=== PATIENT | female | born 1955 | race Caucasian/White ===

== ENCOUNTER 2023-02-05 19:00 | Emergency (ER) | payer MEDICARE, MEDICAID ==
[~2023-02-05] VITALS: Ht 157.5 cm; Wt 82.0 kg
[2023-02-05 20:13] LABS: BASOPHILS % (AUTO) 0.3 % (0-1); EOSINOPHILS % (AUTO) 0 % (0-6); HEMATOCRIT 42.7 % (35.0-45.0); HEMOGLOBIN 14.7 g/dl (12.0-16.0); LYMPHOCYTES # (AUTO) 0.5 X10'3 (1.1-4.8); LYMPHOCYTES % (AUTO) 4.7 % (21-51); MEAN CORPUSCULAR HEMOGLOBIN 30.2 PG (27.0-31.0); MEAN CORPUSCULAR HGB CONC 34.3 g/dL (33.0-36.5); MEAN CORPUSCULAR VOLUME 88.1 FL (78-98); MEAN PLATELET VOLUME 10.3 FL (7.4-10.4); MONOCYTES # (AUTO) 0.8 X10'3 (0-0.9); MONOCYTES % (AUTO) 7.4 % (2-12); NEUTROPHILS # (AUTO) 10.1 X10'3 (1.8-7.7); NEUTROPHILS % (AUTO) 87.6 % (42-75); PLATELET COUNT 179 X10'3 (140-440); RED BLOOD COUNT 4.85 X10'6 (4.20-5.60); RED CELL DISTRIBUTION WIDTH 13.5 % (11.5-14.5); WHITE BLOOD COUNT 11.5 X10'3 (4.5-11.0)
[2023-02-05] MEDS ORDERED: ondansetron/PF 4mg/2ml inj IV ONE (20:30)
[2023-02-05] MEDS ORDERED: meclizine 12.5mg tablet PO ONE ×2 (20:30)
[2023-02-05] MEDS ORDERED: normal saline 1000ml 1,000 ML IV ONE (20:30)
[2023-02-05] MEDS ORDERED: famotidine/PF 10 mg/ml inj IV ONE (20:30)
[2023-02-05 20:34] LABS: ALANINE AMINOTRANSFERASE 23 U/L (12-78); ALBUMIN/GLOBULIN RATIO 0.9 (1.1-1.5); ALKALINE PHOSPHATASE 63 IU/L (46-116); ANION GAP 12 (8-16); ASPARTATE AMINO TRANSFERASE 26 U/L (10-37); BILIRUBIN,TOTAL 1.1 MG/DL (0.1-1.0); BLOOD UREA NITROGEN 13 MG/DL (7-18); BUN/CREATININE RATIO 11.1 (10.0-20.0); CALCIUM 9.5 MG/DL (8.5-10.1); CHLORIDE 98 MMOL/L (99-107); CREATININE 1.17 MG/DL (0.40-0.90); GLUCOSE 139 MG/DL (70-104); PRO BRAIN NATRIURETIC PEPTIDE 1288 PG/ML (0-125); SODIUM 137 MMOL/L (135-145); TOTAL CARBON DIOXIDE 26.6 MMOL/L (24-32); TOTAL PROTEIN 8.3 G/DL (6.4-8.2); eCRCL 37 ML/MIN; eGFR 46 ML/MIN
[2023-02-05] MEDS ORDERED: potassium CL 10mEq/100ml bag 100 ML IV SCH (20:45)
[2023-02-05 21:54] LABS: BILIRUBIN,URINE NEGATIVE (Neg); CLARITY,URINE SLIGHTLY CLOUDY (Clear); COLOR,URINE YELLOW (Yellow); GLUCOSE, URINE NEGATIVE (Neg); KETONES,URINE 40 mg/dl (Neg); LEUKOCYTE ESTERASE ,URINE NEGATIVE (Neg); NITRITES, URINE NEGATIVE (Neg); OCCULT BLOOD,URINE SMALL (Neg); PH,URINE 5.5 (4.8-8.0); PROTEIN,URINE 100 mg/dl (Neg); UROBILINOGEN,URINE 0.2 E.U/dL (0.2-1.0)
[2023-02-05 22:02] LABS: UA COLLECTION TYPE CLN CATCH MIDSTREAM
[2023-02-05 22:03] LABS: SQUAMOUS EPITHELIAL CELL,UR MANY /LPF (FEW)
[2023-02-05 22:04] LABS: MUCUS STRANDS MODERATE /LPF (Neg)
[2023-02-05 22:05] LABS: COARSE GRANULAR CAST 0-3 /LPF (NEGATIVE); HYALINE CASTS 0-3 /LPF (NEGATIVE); WBC,URINE 0-4 /HPF (0-4)
[2023-02-05 22:08] LABS: AMORPHOUS URATES 4+; BACTERIA,URINE FEW /HPF (Neg)
[2023-02-05] MEDS ORDERED: MECL-226 PO (22:13)
[2023-02-05] MEDS ORDERED: ONDA4TAB12 PO (22:13)
[2023-02-05] MEDS ORDERED: acetaminophen 1,000mg/100ml IV 100 ML IV ONE (22:30)
[2023-02-05 23:21] VITALS: BP 117/66; PULSE 98; RESP 18; TEMP 100.3; O2SAT 93
[2023-02-06] MEDS ORDERED: TAM75C PO (00:25)
== END 2023-02-05 23:42 | disposition home or self-care (01) ==
LOC: ER 19:01
DX: R42 Dizziness and giddiness (principal); R05.9 Cough, unspecified; R11.2 Nausea with vomiting, unspecified; Z88.8 Allergy status to other drugs, medicaments and biological substances; Z79.899 Other long term (current) drug therapy
CPT/HCPCS: 36415; 71045; 80053; 81001; 83605; 83880; 84145; 84484; 85025; 87040; 87502; 87503; 93005; 96361; 96374; 96375; 99285; J0131; J2405; J3480; J3490; J7030; J8597; 96365; 96366

== ENCOUNTER 2023-02-07 11:10 | Emergency (ER) | payer MEDICARE, MEDICAID ==
[~2023-02-07] VITALS: Ht 157.5 cm; Wt 86.4 kg
[~2023-02-07 11:10] MED LIST: MECL-226 PO; ONDA4TAB12 PO; TAM75C PO
[2023-02-07 11:59] LABS: BASOPHILS # (AUTO) 0.1 X10'3 (0-0.2); BASOPHILS % (AUTO) 1.3 % (0-1); EOSINOPHILS % (AUTO) 0 % (0-6); HEMATOCRIT 44.1 % (35.0-45.0); LYMPHOCYTES # (AUTO) 1.2 X10'3 (1.1-4.8); LYMPHOCYTES % (AUTO) 13.3 % (21-51); MEAN CORPUSCULAR HEMOGLOBIN 30.4 PG (27.0-31.0); MEAN CORPUSCULAR VOLUME 89.5 FL (78-98); MEAN PLATELET VOLUME 10.2 FL (7.4-10.4); MONOCYTES # (AUTO) 0.6 X10'3 (0-0.9); MONOCYTES % (AUTO) 6.5 % (2-12); NEUTROPHILS # (AUTO) 7.4 X10'3 (1.8-7.7); NEUTROPHILS % (AUTO) 78.9 % (42-75); PLATELET COUNT 156 X10'3 (140-440); RED BLOOD COUNT 4.93 X10'6 (4.20-5.60); RED CELL DISTRIBUTION WIDTH 13.6 % (11.5-14.5); WHITE BLOOD COUNT 9.4 X10'3 (4.5-11.0)
[2023-02-07 12:10] LABS: ALANINE AMINOTRANSFERASE 28 U/L (12-78); ALBUMIN 3.6 G/DL (3.4-5.0); ALBUMIN/GLOBULIN RATIO 0.8 (1.1-1.5); ALKALINE PHOSPHATASE 51 IU/L (46-116); ANION GAP 10 (8-16); ASPARTATE AMINO TRANSFERASE 38 U/L (10-37); BILIRUBIN,TOTAL 0.9 MG/DL (0.1-1.0); BLOOD UREA NITROGEN 13 MG/DL (7-18); BUN/CREATININE RATIO 12.4 (10.0-20.0); CALCIUM 9.1 MG/DL (8.5-10.1); CHLORIDE 99 MMOL/L (99-107); CREATININE 1.05 MG/DL (0.40-0.90); GLUCOSE 96 MG/DL (70-104); LIPASE 30 U/L (16-77); SODIUM 138 MMOL/L (135-145); TOTAL CARBON DIOXIDE 28.7 MMOL/L (24-32); TOTAL PROTEIN 8.4 G/DL (6.4-8.2); eCRCL 42 ML/MIN; eGFR 52 ML/MIN
[2023-02-07 12:18] LABS: POTASSIUM 2.9 MMOL/L (3.5-5.1)
[2023-02-07] MEDS ORDERED: ondansetron/PF 4mg/2ml inj IV ONE (12:20)
[2023-02-07] MEDS ORDERED: ondansetron 4mg rapidly disintigrating tab PO ONE (12:25)
[2023-02-07] MEDS ORDERED: normal saline 1000ml 1,000 ML IV ONE ×2 (14:15)
[2023-02-07] MEDS ORDERED: diphenhydrAMINE 50 mg/ml inj IV ONE (14:45)
[2023-02-07] MEDS ORDERED: metoclopramide 5 mg/ml inj IV ONE (14:45)
[2023-02-07 15:44] LABS: BILIRUBIN,URINE SMALL (Neg); CLARITY,URINE CLOUDY (Clear); COLOR,URINE YELLOW (Yellow); GLUCOSE, URINE NEGATIVE (Neg); KETONES,URINE 40 mg/dl (Neg); LEUKOCYTE ESTERASE ,URINE NEGATIVE (Neg); NITRITES, URINE NEGATIVE (Neg); OCCULT BLOOD,URINE TRACE-INTACT (Neg); PH,URINE 5.5 (4.8-8.0); PROTEIN,URINE 30 mg/dl (Neg)
[2023-02-07 15:52] LABS: UA COLLECTION TYPE CLN CATCH MIDSTREAM
[2023-02-07 16:00] LABS: FINE GRANULAR CAST 0-3 /LPF (NEGATIVE); HYALINE CASTS 0-3 /LPF (NEGATIVE); MUCUS STRANDS FEW /LPF (Neg)
[2023-02-07 16:03] LABS: SQUAMOUS EPITHELIAL CELL,UR MANY /LPF (FEW)
[2023-02-07 16:04] LABS: BACTERIA,URINE 2+ /HPF (Neg); COARSE GRANULAR CAST 0-3 /LPF (NEGATIVE); RBC,URINE 0-2 /HPF (0-2); WBC,URINE 0-4 /HPF (0-4)
[2023-02-07 17:00] VITALS: TEMP 99
[2023-02-07] MEDS ORDERED: proCHLORperazine 10 MG/2 ml inj IV ONE (17:10)
[2023-02-07 18:11] LABS: URINE AMPHETAMINE SCREEN NEGATIVE (Neg); URINE BARBITUATE SCREEN NEGATIVE (Neg); URINE BENZODIAZEPINES SCREEN NEGATIVE (Neg); URINE CANNABINOID SCREEN POSITIVE (Neg); URINE COCAINE SCREEN NEGATIVE (Neg); URINE METHADONE SCREEN NEGATIVE (Neg); URINE OPIATE SCREEN NEGATIVE (Neg); URINE PHENCYCLIDINE SCREEN NEGATIVE (Neg)
[2023-02-07 18:16] VITALS: BP 141/76; PULSE 76; RESP 21; O2SAT 93
[2023-02-07] MEDS ORDERED: chlorproMAZINE 25mg/ml inj. IM ONE (18:40)
[2023-02-07] MEDS: potassium CL 10mEq/100ml bag 100 ML IV SCH ×4 (19:12→20:25)
[2023-02-07] MEDS ORDERED: potassium bicarbonate/cit acid 25mEq tablet.effervescent PO ONE (20:30)
== END 2023-02-07 21:07 | disposition home or self-care (01) ==
LOC: ER 11:11
DX: E87.6 Hypokalemia (principal); R11.15 Cyclical vomiting syndrome unrelated to migraine; Z88.8 Allergy status to other drugs, medicaments and biological substances; Z79.899 Other long term (current) drug therapy
CPT/HCPCS: 36415; 80053; 80305; 81001; 83690; 85025; 96361; 96374; 96375; 99285; J0780; J2765; J3480; J7030; J7040

== ENCOUNTER 2023-07-05 13:56 | Outpatient (CLI) | payer MEDICARE, MEDICAID ==
[~2023-07-05 13:56] MED LIST changes: -TAM75C PO
== END 2023-07-05 23:59 | disposition home or self-care (01) ==
LOC: RAD 13:56
PROVIDERS: ATTEND Student in an Organized Health Care Education/Training Program
DX: M25.511 Pain in right shoulder (principal); M25.512 Pain in left shoulder
CPT/HCPCS: 73030